=== PATIENT | male | born 1965 | race African-American/Black ===

== ENCOUNTER 2022-10-18 04:59 | Day surgery (SDC) | payer OTHER ==
[2022-10-13 14:33] VITALS: BMI 24.3
[2022-10-18] MEDS ORDERED: DEXAMETHASONE SOD PHOSPHATE 10 MG/1 ML VIAL ONE ×2 (11:34→11:52)
[2022-10-18] MEDS ORDERED: LIDOCAINE HCL/PF 1% SDV 5ML VIAL ONE (11:34)
[2022-10-18 13:14] VITALS: RESP 20
[2022-10-18] MEDS ORDERED: BUPIVACAINE HCL/PF 0.25% (2.5MG/ML) 10 ML VIAL ONE (13:29)
[2022-10-18] MEDS ORDERED: MIDAZOLAM HCL 2 MG/2 ML SINGLE DOSE VIAL ONE (14:29)
[2022-10-18] MEDS ORDERED: IOHEXOL 180 MG/1 ML ML IJ ONE ×2 (14:32→14:36)
[2022-10-18] MEDS ORDERED: LIDOCAINE HCL 1% PRESERVATIVE FREE - 30ML VIAL IJ ONE ×2 (14:32→14:36)
[2022-10-18] MEDS ORDERED: BUPIVACAINE HCL/PF 0.25% (2.5MG/ML) 10 ML VIAL IJ ONE ×2 (14:32→14:36)
[2022-10-18] MEDS ORDERED: PROPOFOL 20 ML ONE (14:36)
[2022-10-18 15:42] VITALS: TEMP 97.5
[2022-10-18 15:44] VITALS: BP 127/73; PULSE 58
== END 2022-10-18 15:35 | disposition home or self-care (01) ==
LOC: JASU-SURG 04:59
PROVIDERS: ATTEND Physical Medicine & Rehabilitation
PROC: 3E0R3BZ Introduction of Anesthetic Agent into Spinal Canal, Percutaneous Approach (ICD-10-PCS; 2022-10-18)
PROC: 3E0R33Z Introduction of Anti-inflammatory into Spinal Canal, Percutaneous Approach (ICD-10-PCS; principal; 2022-10-18 14:00)
DX: M54.16 Radiculopathy, lumbar region (principal)
CPT/HCPCS: 76000-TC-FY; J1100